=== PATIENT | male | born 1995 | race African-American/Black ===

== ENCOUNTER 2023-09-20 15:02 | Emergency (ER) | payer OTHER | END 2023-09-20 17:20 | disposition home or self-care (01) | LOC: CSHERS 15:02 | DX: L02.412 Cutaneous abscess of left axilla (principal) | CPT/HCPCS: 10060 ==

== ENCOUNTER 2024-04-30 10:28 | Emergency (ER) | payer OTHER ==
[2024-04-30 11:23] LABS: #Basophils 0.03 10x3/uL (0.0-0.2); #Eosinophils 0.02 10x3/uL (0.0-0.5); #Monocytes 0.72 10x3/uL (0.0-1.1); #Neutrophils 4.55 10x3/uL (1.5-8.4); %Basophils 0.4 % (0.0-2.0); %Eosinophils 0.3 % (0.0-6.0); %Lymphocytes 30.9 % (18.0-47.0); %Monocytes 9.3 % (0.0-10.0); %Neutrophils 58.8 % (40.0-75.0); Hematocrit 47.8 % (38.8-50.0); Hemoglobin 14.9 g/dL (13.5-17.5); Mean Corpuscular HGB CONC 31.2 g/dL (32.0-36.0); Mean Corpuscular Hemoglobin 27.9 pg (27.0-33.0); Mean Corpuscular Volume 89.5 fL (81.2-95.1); Mean Platelet Volume 11.4 fL (7.4-10.4); Platelet Count 188 10x3/uL (150-450); RBC Distribution Width 15.8 % (11.5-14.5); Red Blood Cell (RBC) Count 5.34 10x6/uL (4.32-5.72); White Blood Cell (WBC) Count 7.7 10x3/uL (3.5-10.5)
[2024-04-30 11:25] LABS: Actual Bicarbonate (HCO3v) 8.6 mEq/L (22-28); Analyzer IN Cardio CS ICU; Base Excess -18.1 mEq/L (-2 - +2); Calcium, Ionized (venous) 1.27 mmol/L (1.16-1.32); Chloride (VBG) 105 mmol/L (98-106); Hematocrit-VBG 47 % (42.0-52.0); Puncture Site Other Site; RapidComm Collect By CBN; Sodium 141 mmol/L (133-146)
[2024-04-30 11:31] LABS: ALT (SGPT) 18 U/L (8-55); AST (SGOT) 13 U/L (5-34); Albumin 3.9 g/dL (3.5-5.0); Alkaline Phosphatase 108 U/L (40-110); BUN (Urea Nitrogen) 12 mg/dL (8.9-20.6); Bilirubin, Total 0.9 mg/dL (0.2-1.2); Calc. Creatinine Clearance 0 mL/min (70-130); Calcium 9.6 mg/dL (7.8-10.44); Chloride 108 mmol/L (98-107); Estimated GFR 65; Glucose 321 mg/dL (70-105); Magnesium 2.3 mg/dL (1.6-2.6); Potassium 4.4 mmol/L (3.5-5.1); Protein, Total 8.9 g/dL (6.0-8.3); Sodium 138 mmol/L (136-145)
[2024-04-30 11:55] LABS: Carbon Dioxide Less than 8 mmol/L (22-29); Critical Call Chemistry ERS.CH3 @1155
[2024-04-30] MEDS ORDERED: INSULIN REGULAR IN 0.9 % NACL 100 ML ONE (12:25)
[2024-04-30] MEDS ORDERED: NS 0.9% w/ 20 MEQ KCL 1,000 ML ONE (13:52)
== END 2024-04-30 14:28 | disposition short-term general hospital (02) ==
LOC: CSHERS 10:28
DX: E11.10 Type 2 diabetes mellitus with ketoacidosis without coma (principal); E86.0 Dehydration
CPT/HCPCS: 36416; 71045; 80053; 82010; 82805; 83735; 85025; 93005; 96361; 96365; 96366; J1815; J3480